=== PATIENT | female | born 1945 | race Caucasian/White ===

== ENCOUNTER 2019-04-09 04:40 | Inpatient (IN) | payer MEDICAID, MEDICARE, OTHER ==
[~2019-04-09] VITALS: Ht 172.7 cm; Wt 69.6 kg
[2019-04-09] VITALS (18 sets, daily range): BP systolic 89–154; BP diastolic 46–82
[~2019-04-09 04:40] MED LIST: CALC-881 PO; CALC0.5C8 PO; CALC500T52 PO; FESO4TAB PO; FLUT16SP16 BNOSTRILS; IBUP-1957 PO; MEMA1CAP PO; METH10TA2 PO; OMEP20TA20 PO; TRAM50TA2 PO
--- NOTE | 2019-04-09 04:47 | NUR ---
PT [id number] FROM BOARD AND CARE C/O HEMATOMA ON FOREHEAD S/P GLF. PER RA, PT WAS SITTING IN CHAIR, GOT UP TO TURN OFF THE LIGHT, AND FELL. NOTED ECCHYMOSIS AND SWELLING ON FOREHEAD. SKIN NOT INTACT, BLEEDING STOPPED. NOTED ABRASION ON L UPPER EXTREMITY WELL. DENIES NAUSEA, VOMITTING, DIZZINESS, HEADACHE. PT AAOX3. RESPIRATIONS EVEN AND UNLABORED. VITAL SIGNS STABLE. NO ACUTE DISTRESS NOTED AT THIS TIME.
--- NOTE | 2019-04-09 04:49 | NUR ---
EMT AT BEDSIDE FOR WOUND CARE
--- NOTE | 2019-04-09 05:19 | NUR ---
PT BROUGHT BY RADIOLOGY TO CT
--- NOTE | 2019-04-09 05:43 | NUR ---
IV INITATED RAC 20G. LABS DRAWN FROM SITE. MARBLE INSTALLER SUPERVISOR AT BEDSIDE FOR COLLECTION.
[2019-04-09 05:49] LABS: BASOPHILS # (AUTO) 0.1 /CMM (0.0-0.2); BASOPHILS % (AUTO) 1.2 % (0.0-2.0); EOSINOPHILS % (AUTO) 1.4 % (0.0-6.0); HEMATOCRIT 46 % (33-45); HEMOGLOBIN 15.2 g/dL (11.5-14.8); LYMPHOCYTES # (AUTO) 1.8 /CMM (0.8-4.8); LYMPHOCYTES % (AUTO) 17.3 % (20.0-44.0); MEAN CORPUSCULAR HGB CONC 33 g/dl (31.0-36.0); MEAN CORPUSCULAR VOLUME 87 fL (82-100); MONOCYTES % (AUTO) 9.4 % (2.0-12.0); NEUTROPHILS # (AUTO) 7.5 /CMM (1.8-8.9); NEUTROPHILS % (AUTO) 70.7 % (43.0-81.0); PLATELET COUNT (AUTO) 306 /CMM (150-450); RED BLOOD CELL COUNT(AUTO) 5.32 MIL/uL (4.0-5.2); WHITE BLOOD COUNT (AUTO) 10.6 K/uL (4.3-11.0)
--- NOTE | 2019-04-09 05:50 | NUR ---
NOTED TACHYCARDIA, MD AWARE
[2019-04-09] MEDS ORDERED: DILTIAZEM HCL 50 MG IV IV ONE (06:00)
[2019-04-09] MEDS ORDERED: DILTIAZEM HCL IV 125 MG in IV NS 0.9% 100 ML IV PRN (06:00)
[2019-04-09 06:02] LABS: CALCIUM, SERUM 8.6 mg/dL (8.5-10.1); CARBON DIOXIDE 24 mmol/L (21-32); CHLORIDE 100 mmol/L (98-107); CREATININE 1.6 mg/dL (0.6-1.3); GLUCOSE 100 mg/dL (74-106); POTASSIUM 5.6 mmol/L (3.5-5.1); SODIUM SERUM 133 mmol/L (136-145); UREA NITROGEN, BLOOD 31 mg/dL (7-18)
[2019-04-09] MEDS ORDERED: DILTIAZEM HCL 50 MG IV ONE (06:11)
[2019-04-09] MEDS ORDERED: DILTIAZEM HCL 25 MG IV ONE (06:25)
[2019-04-09] MEDS ORDERED: ACETAMINOPHEN 650 MG/SUPP.RECT RC PRN (06:30)
[2019-04-09] MEDS ORDERED: ONDANSETRON HCL/PF 4 MG/2 ML VIAL IVP PRN (06:30)
[2019-04-09] MEDS ORDERED: LABETALOL HCL IV 100MG VIAL IV PRN (06:30)
--- NOTE | 2019-04-09 07:52 | NUR ---
GOT BED ICU 261
--- NOTE | 2019-04-09 08:05 | NUR ---
ATTEMPTED TO GIVE REPORT, NURSE WILL CALL BACK
[2019-04-09] MEDS ORDERED: MEMA5TAB PO (08:36)
[2019-04-09] MEDS ORDERED: VENL75TA4 PO (08:36)
[2019-04-09] MEDS ORDERED: CEPH500C2 PO (08:36)
[2019-04-09] MEDS ORDERED: SIMV40TA5 PO (08:36)
[2019-04-09] MEDS ORDERED: SULF1TAB48 PO (08:36)
[2019-04-09] MEDS ORDERED: MULT-213 PO (08:36)
[2019-04-09] MEDS ORDERED: QUET25TA PO (08:36)
[2019-04-09] MEDS ORDERED: METO100T14 PO (08:36)
--- NOTE | 2019-04-09 08:37 | NUR ---
REPORT GIVEN TO LISANDRO OLIVA OF ICU
--- NOTE | 2019-04-09 08:39 | NUR ---
DR ALCARAZ AND DR DAHL AT BEDSIDE
[2019-04-09] MEDS ORDERED: PROT946L PO (08:51)
[2019-04-09] MEDS ORDERED: BISA10SU61 RC (08:52)
[2019-04-09] MEDS ORDERED: ASCO500C16 PO (08:52)
[2019-04-09] MEDS ORDERED: ZINC220C2 PO (08:52)
[2019-04-09] MEDS ORDERED: MAGN400O6 PO (08:52)
[2019-04-09] MEDS ORDERED: TYL2T PO (08:52)
[2019-04-09] MEDS ORDERED: FAMOTIDINE/PF INJ 20 MG/2 ML VIAL IV SCH (09:00)
[2019-04-09] MEDS: DILTIAZEM HCL IV 125 MG in IV NS 0.9% 100 ML IV PRN ×2 (09:24→22:14)
[2019-04-09] MEDS: DOCUSATE SODIUM 100 MG CAPSULE PO SCH ×2 (09:41→16:54)
[2019-04-09] MEDS: BLOOD SUGAR DIAGNOSTIC 1 EACH STRIP IN SCH ×4 (09:46→22:09)
[2019-04-09] MEDS: IV NS 0.9% 1,000 ML IV PRN ×2 (09:50→20:50)
[2019-04-09 09:57] LABS: MAGNESIUM 1.8 mg/dL (1.8-2.4); PHOSPHORUS 4.8 mg/dL (2.5-4.9)
[2019-04-09 10:07] LABS: THYROID STIMULATING HORMONE 3.278 uIU/mL (0.358-3.74)
--- NOTE | 2019-04-09 10:57 | NUR ---
MEDICAL REGISTRAR NOTE RCVD PT AWAKE AND ALERT TO SELF AND TIME, CONTROLLED AFIB ON MONITOR, TOLERATING O2 VIA NASAL CANNULA, CARRANZA INSERTED DUE TO URINARY RETENTION, RIGHT AC #20 C/D/I/PATENT, NO S/O INFILTRATION/PHLEBITIS OBSERVED CARDIZEM DRIP INFUSING TITRATED ORDERED. LEFT FOREHEAD HEMATOMA PRESENT. WILL CONTINUE TO MONITOR PT FOR SAFETY AND COMFORT, BED IN LOW AND LOCKED POSITION, CALL LIGHT WITHIN REACH, HEAD OF BED SLIGHTLY ELEVATED. URINE SENT FOR UA.
--- NOTE | 2019-04-09 11:07 | NUR ---
IRRIGATION TAX ASSESSOR COLLECTOR NOTE BASELINE NIHSS SCORE 4 DR. ALCARAZ INFORMED.
[2019-04-09] MEDS ORDERED: BLOOD SUGAR DIAGNOSTIC 1 EACH STRIP IN SCH (12:00)
[2019-04-09] MEDS ORDERED: ACETAMINOPHEN 325 MG TABLET PO PRN (12:30)
[2019-04-09 16:32] LABS: APPEARANCE,URINE CLEAR (CLEAR); BILIRUBIN,URINE NEGATIVE (NEGATIVE); BLOOD, URINE NEGATIVE Ery/uL (NEGATIVE); COLOR,URINE YELLOW (YELLOW); KETONES,URINE NEGATIVE (NEGATIVE); LEUKOCYTE ESTERASE ,URINE NEGATIVE (NEGATIVE); NITRITE, URINE NEGATIVE (NEGATIVE); PROTEIN,URINE NEGATIVE (NEGATIVE); UGLUCOSE NEGATIVE (NEGATIVE)
[2019-04-09 16:51] LABS: OSMOLALITY,URINE 625 mOS/kg (340-1090)
[2019-04-09 16:54] LABS: URINE SODIUM, RANDOM 117 mmol/l (40-220)
[2019-04-09 16:57] LABS: BACTERIA,URINE None seen /HPF (None Seen); RBC,URINE 0-2 /HPF (0-2); SQUAMOUS EPITHELIAL CELL,UR Few /HPF (None Seen); WBC,URINE 0-2 /HPF (0-3)
--- NOTE | 2019-04-09 17:52 | NUR ---
DISBURSING AGENT NOTE PT REMAINS THE SAME, AWAKE AND ALERT X2, AFIB/FLUTTER ON MONITOR WITH CONTROLLED RATE, TOLERATING O2 VIA NASAL CANNULA, CARRANZA TO GRAVITY DRAINING CLEAR, YELLOW URINE. TOLERATING REGULAR DIET WELL, RIGHT AC REMAINS C/D/I/PATENT, NO S/O INFILTRATION/PHLEBITIS OBSERVED, IVF INFUSING ORDERED. PT'S CARE WILL BE ENDORSED TO MASTER CONTROL SUPERVISOR RN FOR CONTINUITY OF CARE, BED IN LOW AND LOCKED POSITION. CALL LIGHT WITHIN REACH, HEAD OF BED ELEVATED.
--- NOTE | 2019-04-09 19:25 | NUR ---
ICU/LABORER CONCRETE PLANT RECEIVED REPORT FROM DAY NURSE. SEE FLOWSHEET FOR ASSESSMENT ALONG WITH ANY SKIN ISSUES THAT PT MAY HAVE ALONG WITH EACH INTERVENTIONS TO THESE. PT WAS ASSISTED WITH TURNING AND REPOSITIONING FOR COMFORT AND CARE. NO ACUTE DISTRESS SEEN AT THIS TIME, PT APPEARS TO BE RESTING COMFORTABLE. WILL CONTINUE TO MONITOR THIS PT.
[2019-04-09] MEDS: MORPHINE SULFATE INJ 2 MG/ML DISP.SYRIN IV PRN ×2 (20:07→22:13)
--- NOTE | 2019-04-09 20:10 | NUR ---
ICU/HEALTH INFORMATION TECHNOLOGIST PT COMPLAINED ABOUT PAIN TO THE LEFT SIDE OF THE HEAD FROM FALL AT NURSING FACILITY EARLIER. PAIN IS RATED AT 8/10 TO THIS AREA, NOTIFIED CHARGE NURSE WHO THEN HAVE MORPHINE 1 MG VIA IVP. CALL LIGHT WITHIN REACH. WILL CONTINUE TO MONITOR THIS PT AND HER PAIN LEVEL.
[2019-04-09] MEDS: SIMVASTATIN 10 MG TABLET PO SCH (22:10)
--- NOTE | 2019-04-09 22:31 | NUR ---
ICU/SUPERVISOR VACUUM METALIZING PT COMPLAINED THAT THE PAIN HASN'T GONE AWAY, NOW RATED 9/10. PAIN IS TO THE SAME AREA, LEFT SIDE OF THE HEAD . NOTIFIED THE CHARGE NURSE WHO THEN GAVE THE PT MORPHINE 1 MG IVP FOR THIS PAIN. CALL LIGHT WITHIN REACH. WILL CONTINUE TO MONITOR THIS PT'S PAIN LEVEL.
--- NOTE | 2019-04-09 22:34 | NUR ---
ICU/HALAL MEAT PACKER PT'S 2200 BLOOD SUGAR IS 94. THERE IS NO COVERAGE FOR THIS PER MD'S ORDERS. WILL CONTINUE TO MONITOR THIS PT'S SUGARS ORDERED BY MD AND HOSPITAL PROTOCOL. CALL LIGHT WITHIN REACH, NO ACUTE DISTRESS SEEN AT THIS TIME.
[2019-04-10] VITALS (27 sets, daily range): BP systolic 85–153; BP diastolic 38–96
--- NOTE | 2019-04-10 00:35 | NUR ---
ICU/NAPHTHALENE OPERATOR HELPER PT'S MIDNIGHT VITAL SIGNS ARE 153/56 WITH HEART RATE AT 103, NOTIFIED CHARGE NURSE WHO THEN LOWERED DOWN THE CARDIZEM DRIP FROM 10MG TO 8. WILL CONTINUE TO MONITOR THIS PT AND HER VITAL SIGNS.
--- NOTE | 2019-04-10 02:12 | NUR ---
ICU/CHILD PSYCHOMETRIST PT'S 020 VITAL SIGNS ARE 125/66 WITH A HEART RATE OF 104, NOTIFIED CHARGE NURSE WHO THEN LOWERED DOWN THE CARDIZEM DRIP FROM 8 TO 6. WILL CONTINUE TO MONITOR THIS PT AND HER VITAL SIGNS. CALL LIGHT WITHIN REACH. NO ACUTE DISTRESS SEEN AT THIS TIME.
--- NOTE | 2019-04-10 04:12 | NUR ---
ICU/POLE LIFT OPERATOR PT'S 399 VITAL SIGNS ARE STABLE AT 123/68 WITH HEART RATE AT 110, NOTIFIED CHARGE NURSE WHO THEN LOWERED DOWN THE CARDIZEM DRIP FROM 6MG TO 4. WILL CONTINUE TO MONITOR THIS PT AND HER VITAL SIGNS.
[2019-04-10 05:02] LABS: BASOPHILS # (AUTO) 0.1 /CMM (0.0-0.2); BASOPHILS % (AUTO) 1.4 % (0.0-2.0); EOSINOPHILS % (AUTO) 0.9 % (0.0-6.0); HEMATOCRIT 43 % (33-45); HEMOGLOBIN 14.1 g/dL (11.5-14.8); LYMPHOCYTES # (AUTO) 1.4 /CMM (0.8-4.8); LYMPHOCYTES % (AUTO) 16.1 % (20.0-44.0); MEAN CORPUSCULAR HGB CONC 33 g/dl (31.0-36.0); MEAN CORPUSCULAR VOLUME 87 fL (82-100); MONOCYTES # (AUTO) 0.8 /CMM (0.1-1.30); MONOCYTES % (AUTO) 9.1 % (2.0-12.0); NEUTROPHILS # (AUTO) 6.5 /CMM (1.8-8.9); NEUTROPHILS % (AUTO) 72.5 % (43.0-81.0); PLATELET COUNT (AUTO) 271 /CMM (150-450); RED BLOOD CELL COUNT(AUTO) 4.91 MIL/uL (4.0-5.2); WHITE BLOOD COUNT (AUTO) 8.9 K/uL (4.3-11.0)
[2019-04-10 05:26] LABS: ALANINE AMINOTRANSFERASE 75 U/L (12-78); ALBUMIN 2.9 g/dL (3.4-5.0); ALKALINE PHOSPHATASE 78 U/L (46-116); ASPARTATE AMINOTRANSFERASE 112 U/L (15-37); BILIRUBIN,TOTAL 0.8 mg/dL (0.2-1.0); CALCIUM, SERUM 8.3 mg/dL (8.5-10.1); CARBON DIOXIDE 27 mmol/L (21-32); CHLORIDE 102 mmol/L (98-107); CREATININE 1.1 mg/dL (0.6-1.3); GLUCOSE 102 mg/dL (74-106); MAGNESIUM 1.5 mg/dL (1.8-2.4); POTASSIUM 4.4 mmol/L (3.5-5.1); SODIUM SERUM 136 mmol/L (136-145); TOTAL PROTEIN, SERUM 6.6 g/dL (6.4-8.2); UREA NITROGEN, BLOOD 19 mg/dL (7-18)
[2019-04-10 05:29] LABS: CHOLESTEROL 121 mg/dL (<200); CREATINE KINASE, TOTAL 59 U/L (26-192); HDL CHOLESTEROL 63 mg/dL (40-60); LDL 53 mg/dL (0-99); THYROID STIMULATING HORMONE 2.623 uIU/mL (0.358-3.74); TRIGLYCERIDES 51 mg/dL (30-150)
[2019-04-10] MEDS: IV NS 0.9% 1,000 ML IV PRN ×2 (06:04→17:16)
[2019-04-10] MEDS: BLOOD SUGAR DIAGNOSTIC 1 EACH STRIP IN SCH ×4 (07:39→21:55)
--- NOTE | 2019-04-10 07:49 | NUR ---
INITIAL PROFESSOR OF EXERCISE SCIENCE NOTE PT RESTING IN BED, AFIB ON MONITOR, TOLERATING O2 VIA NASAL CANNULA, CARRANZA TO GRAVITY DRAINING CLEAR, YELLOW URINE, HEMATOMA OVER LEFT FOREHEAD, IV SITES C/D/I/PATENT, NO S/O INFILTRATION/PHLEBITIS OBSERVED, IVF INFUSING ORDERED, CARDIZEM DRIP INFUSING TITRATED ACCORDINGLY. WILL CONTINUE TO MONITOR PT FOR SAFETY AND COMFORT. BED IN LOW AND LOCKED POSITION, CALL LIGHT WITHIN REACH.
[2019-04-10] MEDS: Magnesium 1GM/D5W 100ML PREMIX 100 ML IV SCH ×2 (08:51→09:50)
[2019-04-10] MEDS: DOCUSATE SODIUM 100 MG CAPSULE PO SCH ×2 (08:51→17:12)
[2019-04-10] MEDS: PANTOPRAZOLE 40 MG TABLET.DR PO SCH (08:51)
--- NOTE | 2019-04-10 10:35 | NUR ---
WOUND CARE CONSULT: PT PRESENTS WITH FLAT DRY ABRASION TO LEFT FOREHEAD AND SKIN TEAR TO LEFT ARM, SOME BRUISING, PRESENT ON ADMISSION. RECOMMENDATIONS MADE FOR SKIN PROTECTION AND WOUND CARE. DISCUSSED WITH NURSING STAFF. PT IS INDEPENDENT WITH BED MOBILITY AND CONTINENT AT THIS TIME WITH TERE CATH. PT IS DROWSY. WILL SEE PRN. YI IN AGREEMENT WITH PLAN OF CARE. CURRENT CLARK SCORE IS 18. Addendum: 04/10/19 at 1036 by MICKEY SNELL WNDNU Amended: Links added.
[2019-04-10] MEDS ORDERED: Z GUARD REMEDY 2 OZ OINT TP PRN (11:00)
--- NOTE | 2019-04-10 11:11 | NUR ---
Social service consult requested by MD Crowley for Advance Directive and information resources for eviction. Pt is a 74-year-old female brought from her board and care after a fall. tar pot worker attempted to meet with pt at bedside, sw attempted to prompt pt however pt was not alert. Social work will attempt to see pt at a later time.
--- NOTE | 2019-04-10 11:14 | NUR ---
KNOT PICKER CLOTH NOTE DR. MORELOS AT BEDSIDE UPDATED ON PT'S CONDITION, PT REMAINS SLEEPY BUT AROUSABLE AND FOLLOWING SIMPLE COMMANDS SUCH SQUEEZING WITH BILATERAL HANDS. MD WAS INFORMED THAT PT DIDN'T GO TO SLEEP UNTIL ~0200 PER REPORT AND COMPLAINED OF ABDOMINAL PAIN OVERNIGHT SHE WAS GIVEN MORPHINE FOR THAT. RN REQUESTED MORPHINE TO BE DC'd SINCE PT APPEARS OVERLY SEDATED AND ANOTHER PAIN MANAGEMENT OPTION BE RECOMMENDED SINCE PT REFUSED TO HAVE TYLENOL YESTERDAY.
[2019-04-10] MEDS: METOPROLOL TARTRATE 50 MG TABLET PO SCH ×3 (12:00→23:23)
[2019-04-10] MEDS ORDERED: HALOPERIDOL LACTATE INJ 5 MG/ML VIAL IM ONE (12:00)
--- NOTE | 2019-04-10 12:17 | NUR ---
ROAD ROLLER OPERATOR HOT MIX NOTE PT AWAKE, DELUSIONAL DESPITE ATTEMPTING TO RE-ORIENT HER. DR. MORELOS IN UNIT INFORMED, RECOMMENDED HALDOL X1 WHICH WAS GIVEN IM. DUE AGITATION PT'S HR ELEVATED IN 140's. UNABLE TO GIVE METOPROLOL DUE TO DECREASED SBP. WILL CONTINUE TO MONITOR PT.
[2019-04-10] MEDS ORDERED: DIGOXIN INJ 0.5 MG/2 ML AMPUL IV ONE (14:10)
--- NOTE | 2019-04-10 17:58 | NUR ---
JAVA MOBILE DEVELOPER NOTE PT FINALLY WOKE UP NIHSS SCORE 12 (BASELINE 4 YESTERDAY) DR. MORELOS INFORMED, MD WILL REVIEW CT SCAN HEAD DONE EARLIER. PT APPEARS CALM, EASILY RE-ORIENTED, REMAINS AFIB ON MONITOR. PT'S HR IN THE 140-150's UNCONTROLLED AFIB WHILE PT RESTING DESPITE GIVING DIGOXIN EARLIER. DR. MORELOS INFORMED AND RECOMMENDED AMIODARONE DRIP. PT APPEARS IN NO DISTRESS. CARRANZA TO GRAVITY DRAINING PALE, YELLOW URINE. IV SITES REMAIN C/D/I/PATENT, NO S/O INFILTRATION/PHLEBITIS OBSERVED, IVF INFUSING ORDERED. PT AWAKE AND HAVING DINNER AT THIS TIME TOLERATING DIET. PT'S CARE WILL BE ENDORSED TO STUDENT OFFICER RN FOR CONTINUITY OF CARE, BED IN LOW AND LOCKED POSITION, CALL LIGHT WITHIN REACH. HEAD OF BED ELEVATED.
[2019-04-10] MEDS ORDERED: AMIODARONE 150 MG in IV D5W 100 ML IV ONE (18:00)
[2019-04-10] MEDS ORDERED: AMIODARONE 900 MG in IV D5W 482 ML IV PRN (18:00)
[2019-04-10] MEDS ORDERED: BISACODYL SUPP (10 MG) 10 MG/SUPP.RECT SUPP.RECT RC PRN (19:00)
--- NOTE | 2019-04-10 19:07 | NUR ---
FEED PROJECT ENGINEER NOTE DR. MORELOS CAME TO ASSESS PT. NO NEW ORDERS RCVD. PT REQUESTED SUPPOSITORY AND DR. MORELOS AGREED, THIS WAS GIVEN ORDERED.
--- NOTE | 2019-04-10 19:45 | NUR ---
ICU/HAND FRETTED INSTRUMENT MAKER RECEIVED REPORT FROM DAY NURSE. SEE FLOWSHEET FOR ASSESSMENT ALONG WITH SKIN ISSUES THAT PT HAS ALONG WITH EACH INTERVENTIONS TO THESE. PT WAS ASSISTED WITH TURNING AND REPOSITIONING FOR COMFORT AND CARE. NO ACUTE DISTRESS SEEN AT THIS TIME, PT APPEARS TO BE RESTING COMFORTABLE. WILL CONTINUE TO MONITOR THIS PT. CALL LIGHT WITHIN REACH.
--- NOTE | 2019-04-10 21:30 | NUR ---
ICU/OTR HAZMAT COMPANY DRIVER PT'S BLOOD SUGAR IS 197, THERE IS NO COVERAGE FOR THIS HOWEVER THERE IS AN ORDER FOR ALEXANDER DACOSTA TO CALL IF BS IS OVER 150'S. PT JUST HAD 2 PUDDINGS ALONG WITH A JUICE BOX FROM EARLIER. CALL WAS PLACED TO ON MAGGI JACKIE ELIZALDE WHO WAS NOTIFIED OF ELEVATED BLOOD SUGAR AND THAT THROUGH THE PAST FEW DAYS SUGARS HAVE BEEN IN THE 120'S. SHE SAID THAT THERE IS NO REASON TO CLOSELY MONITOR THE SUGARS IF AT HOME PT IS NOT ON INSULIN. AND TO D/C THE ACCU CHECKS. ONLY MONITOR THESES ON AM LABS. ALL ORDERS WERE CARRIED OUT.
[2019-04-10] MEDS: SIMVASTATIN 10 MG TABLET PO SCH (21:55)
--- NOTE | 2019-04-10 23:20 | NUR ---
ICU/STUDENT ASSISTANT PT REQUESTED SOMETHING FOR PAIN, ULTRUM 50 MG PO WAS GIVEN FOR THIS. PAIN IS RATED 8/10 TO LEFT SIDE OF HEAD. CALL LIGHT WITHIN REACH. WILL CONTINUE TO MONITOR THIS PT AND HER PAIN.
[2019-04-10] MEDS: TRAMADOL HCL 50 MG TABLET PO PRN (23:24)
[2019-04-11] VITALS (20 sets, daily range): BP systolic 93–150; BP diastolic 54–97
--- NOTE | 2019-04-11 00:40 | NUR ---
ICU/WOOD MILL SUPERVISOR PT'S MIDNIGHT LOPRESSOR WAS HELD DUE TO LOW BLOOD PRESSURE OF 102/66. PT HAD JUST GOTTEN A PAIN PILL EARLIER WHICH WOULD CONTRIBUTE TO THE LOW BP. CALL LIGHT WITHIN REACH, NOM ACUTE DISTRESS SEEN AT THIS TIME.
--- NOTE | 2019-04-11 02:00 | NUR ---
ICU/HANDBAG DESIGNER PT THROUGHOUT THE SHIFT HAS BEEN AGGRESSIVE, WITH PERIODS OF YELLING OUT AT TIMES, EVEN CURSING WITH NOBODY PRESENT IN ROOM. PT REQUEST SIMPLE THINGS SUCH WATER WHEN NEXT TO HER, ENCOURAGE INDEPENDENCE WITH ADL'S HOWEVER PT IS REFUSING. WILL CONTINUE TO MONITOR THIS PT AND HER UNUSUAL BEHAVIOR. CALL LIGHT WITHIN REACH.
[2019-04-11] MEDS: IV NS 0.9% 1,000 ML IV PRN ×2 (02:52→14:09)
--- NOTE | 2019-04-11 04:00 | NUR ---
ICU/AGENCY DIRECTOR AM LABS WERE DONE, ALONG WITH A EKG. AWAIT FOR ANY ABNORMAL RESULTS.
[2019-04-11 04:38] LABS: BASOPHILS # (AUTO) 0.1 /CMM (0.0-0.2); BASOPHILS % (AUTO) 0.6 % (0.0-2.0); EOSINOPHILS % (AUTO) 0.8 % (0.0-6.0); HEMATOCRIT 39 % (33-45); HEMOGLOBIN 13.1 g/dL (11.5-14.8); LYMPHOCYTES # (AUTO) 1.4 /CMM (0.8-4.8); LYMPHOCYTES % (AUTO) 14.7 % (20.0-44.0); MEAN CORPUSCULAR HGB CONC 33 g/dl (31.0-36.0); MEAN CORPUSCULAR VOLUME 87 fL (82-100); MONOCYTES % (AUTO) 9.7 % (2.0-12.0); NEUTROPHILS # (AUTO) 7.3 /CMM (1.8-8.9); NEUTROPHILS % (AUTO) 74.2 % (43.0-81.0); PLATELET COUNT (AUTO) 247 /CMM (150-450); RED BLOOD CELL COUNT(AUTO) 4.54 MIL/uL (4.0-5.2); WHITE BLOOD COUNT (AUTO) 9.8 K/uL (4.3-11.0)
[2019-04-11 04:50] LABS: CALCIUM, SERUM 8.4 mg/dL (8.5-10.1); CARBON DIOXIDE 23 mmol/L (21-32); CHLORIDE 105 mmol/L (98-107); CREATININE 0.7 mg/dL (0.6-1.3); GLUCOSE 91 mg/dL (74-106); MAGNESIUM 1.7 mg/dL (1.8-2.4); PHOSPHORUS 3.3 mg/dL (2.5-4.9); POTASSIUM 4.3 mmol/L (3.5-5.1); SODIUM SERUM 137 mmol/L (136-145); UREA NITROGEN, BLOOD 14 mg/dL (7-18)
[2019-04-11] MEDS: METOPROLOL TARTRATE 50 MG TABLET PO SCH ×3 (05:40→17:21)
--- NOTE | 2019-04-11 05:58 | NUR ---
ICU/KILN PUSHER PT'S 0600 LOPRESSOR WAS HELD DUE TO LOW BLOOD PRESSURE OF 100/56. CALL LIGHT WITHIN REACH, NO ACUTE DISTRESS SEEN AT THIS TIME. WILL CONTINUE TO MONITOR THIS PT'S BLOOD PRESSURE CLOSELY.
--- NOTE | 2019-04-11 07:30 | NUR ---
INITIAL PT APPEARS CALM, EASILY RE-ORIENTED, REMAINS AFIB ON MONITOR. PT'S HR IN THE 130's 103 UNCONTROLLED AFIB WHILE PT RESTING DESPITE GIVING DIGOXIN EARLIER. DR. MORELOS IS AWARE. PT APPEARS IN NO DISTRESS. CARRANZA TO GRAVITY DRAINING PALE, YELLOW URINE. IV SITES REMAIN C/D/I/PATENT, NO S/O INFILTRATION/PHLEBITIS OBSERVED, IVF INFUSING ORDERED. PT AWAKE AND HAVING DINNER AT THIS TIME TOLERATING DIET. PT'S CARE WILL BE ENDORSED TO CRTTS RN FOR CONTINUITY OF CARE, BED IN LOW AND LOCKED POSITION, CALL LIGHT WITHIN REACH. HEAD OF BED ELEVATED.
[2019-04-11 08:08] LABS: *SPE A/G RATIO 1.1 (0.7-1.7); *SPE ALBUMIN 3.3 g/dL (2.9-4.4); *SPE ALPHA-1-GLOBULIN 0.2 g/dL (0.0-0.4); *SPE ALPHA-2-GLOBULIN 0.7 g/dL (0.4-1.0); *SPE BETA GLOBULIN 0.8 g/dL (0.7-1.3); *SPE M-SPIKE Not Observed g/dL (Not Observed); *SPEGAMMA GLOBULIN 1.2 g/dL (0.4-1.8)
[2019-04-11] MEDS: PANTOPRAZOLE 40 MG TABLET.DR PO SCH (09:06)
[2019-04-11] MEDS: Magnesium 1GM/D5W 100ML PREMIX 100 ML IV SCH ×2 (09:06→10:22)
[2019-04-11] MEDS: DOCUSATE SODIUM 100 MG CAPSULE PO SCH ×2 (09:06→16:56)
[2019-04-11] MEDS: DIGOXIN 0.25 MG TABLET PO SCH (09:13)
[2019-04-11 14:11] LABS: PTH, INTACT 61 pg/mL (15-65)
--- NOTE | 2019-04-11 14:35 | NUR ---
AROUND 1410 PT UP AND WALKING AROUND UNIT WITH PT AND WALKER RETURNED TO BED
--- NOTE | 2019-04-11 14:59 | NUR ---
Social service consult requested by Dr. Boo for placement. Pt. is a 74 year old female who was admitted to [facility] ICU for subarachnoid hemorrhage. Per case investigator Imelda pt. is from [facility] and will be discharged back to the facility once medically cleared. Pt. 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 Pt. has a history of psychiatric hospitalizations. No other social service needs are requested at this time.
--- NOTE | 2019-04-11 15:50 | NUR ---
RN NOTES PATIENT TRANSFEREE FROM ICU 74 Y/OLD FEMALE ON TELE . REPORT GET BEDSIDE RN NAME KI. TELE MONITOR ON ST-111. PATIENT HAS NO ACUTE RESPIRATORY DISTRESS, NO SOB. WAS COMPLAINING OF PAIN GENERALIZED 05/02. V/S TAKEN BP 104/64, P-84, R-20, 02-98 ROOM AIR, T-98.2. PATIENT HAS A CARRANZA CATHETER DRAINING YELLOW OUTPUT. PATIENT UNSTABLE GAIT. BRUISES RIGHT ARM, BRUISE LEFT ARM WITH SCABS DRESSING INTACT, AND LEFT SIDE OF FOREHEAD WOUND OPEN TO AIR, AND BRUISES LEFT FACE. INFUSING NS AT 100 ML/HR ON RIGHT HAND INTACT. NEEDS ATTENDED AND ANTICIPATED, CALL LIGHT WITHIN TO REACH, SAFETY PRECAUTION MAINTAINED ALL THE TIME. BED ALARM ON.
[2019-04-11] MEDS: TRAMADOL HCL 50 MG TABLET PO PRN (17:07)
--- NOTE | 2019-04-11 17:07 | NUR ---
RN NOTES ADMINISTERED ULTRAM 50 MG PO PRN FOR GENERALIZED PAIN 04/02, AND SCHEDULED MEDICATION. PATIENT STABLE, INFUSING AT 100 ML/HR ON RIGHT HAND INTACT, CALL LIGHT WITHIN TO REACH, SAFETY PRECAUTION MAINTAINED ALL THE TIME.
--- NOTE | 2019-04-11 18:30 | NUR ---
RN NOTES PATIENT STABLE, MEDICATION WERE ADMINISTERED FOR PAIN EFFECTIVE. PATIENT EATING DINNER BY SELF. ALSO ADMINISTERED SCHEDULED MEDICATION. V/S STABLE. PATIENT TURN AND REPOSTION SELF IN THE BED. CALL LIGHT WITHIN TO REACH. F/C DRAIN YELLOW OUTPUT. ENDORSED ONCOMING NURSE FOLLOW PLAN OF CARE.
--- NOTE | 2019-04-11 20:12 | NUR ---
Recieved alert and orientated speech clear hand sugar refinery supervisor strong and equal. good eye contact verbalizes her need revieved the call light with the patient
[2019-04-11] MEDS: SIMVASTATIN 10 MG TABLET PO SCH (21:27)
[2019-04-12] VITALS: BP_SYST 117; BP_SYST 99; BP_DIAS 63; BP_DIAS 70
[2019-04-12] MEDS: IV NS 0.9% 1,000 ML IV PRN (03:07)
[2019-04-12 04:00] VITALS: BP 108/69
[2019-04-12 04:04] VITALS: BP 108/69
--- NOTE | 2019-04-12 04:58 | NUR ---
ENDING NOTES: remains alert and orientated speech clear moving all extremities. enjoys conversation, talking about her cats and where she will go when leaving the hospital. yobani checks within normal/. bruising noted head and her arms
[2019-04-12] MEDS: METOPROLOL TARTRATE 50 MG TABLET PO SCH ×4 (06:02→17:50)
--- NOTE | 2019-04-12 07:05 | NUR ---
RN NOTES PATIENT IN BED ALERT ORIENTED X 3. NO ACUTE DISTRESS NOTED. BREATHING UNLABORED. NO SOB NOTED. IV ACCESS PATENT AND INTACT, NO REDNESS OR SWELLING NOTED. SAFETY MEASURES IN PLACE. CALL LIGHT WITHIN REACH. WILL CONTINUE TO MONITOR ACCORDINGLY.
[2019-04-12 08:00] VITALS: BP 123/72
[2019-04-12 08:11] LABS: BASOPHILS # (AUTO) 0.1 /CMM (0.0-0.2); BASOPHILS % (AUTO) 1.1 % (0.0-2.0); EOSINOPHILS % (AUTO) 2.9 % (0.0-6.0); HEMATOCRIT 38 % (33-45); HEMOGLOBIN 12.4 g/dL (11.5-14.8); LYMPHOCYTES # (AUTO) 1.5 /CMM (0.8-4.8); LYMPHOCYTES % (AUTO) 18.3 % (20.0-44.0); MEAN CORPUSCULAR HGB CONC 33 g/dl (31.0-36.0); MEAN CORPUSCULAR VOLUME 87 fL (82-100); MONOCYTES # (AUTO) 0.8 /CMM (0.1-1.30); MONOCYTES % (AUTO) 9.3 % (2.0-12.0); NEUTROPHILS # (AUTO) 5.7 /CMM (1.8-8.9); NEUTROPHILS % (AUTO) 68.4 % (43.0-81.0); PLATELET COUNT (AUTO) 241 /CMM (150-450); RED BLOOD CELL COUNT(AUTO) 4.33 MIL/uL (4.0-5.2); WHITE BLOOD COUNT (AUTO) 8.3 K/uL (4.3-11.0)
[2019-04-12 08:28] LABS: ALANINE AMINOTRANSFERASE 40 U/L (12-78); ALBUMIN 2.1 g/dL (3.4-5.0); ALKALINE PHOSPHATASE 69 U/L (46-116); ASPARTATE AMINOTRANSFERASE 32 U/L (15-37); BILIRUBIN,TOTAL 0.7 mg/dL (0.2-1.0); CALCIUM, SERUM 7.8 mg/dL (8.5-10.1); CARBON DIOXIDE 21 mmol/L (21-32); CHLORIDE 105 mmol/L (98-107); CREATININE 0.7 mg/dL (0.6-1.3); GLUCOSE 88 mg/dL (74-106); MAGNESIUM 1.6 mg/dL (1.8-2.4); PHOSPHORUS 3.5 mg/dL (2.5-4.9); SODIUM SERUM 137 mmol/L (136-145); TOTAL PROTEIN, SERUM 5.7 g/dL (6.4-8.2); UREA NITROGEN, BLOOD 15 mg/dL (7-18)
[2019-04-12] MEDS: PANTOPRAZOLE 40 MG TABLET.DR PO SCH (09:15)
[2019-04-12] MEDS: DOCUSATE SODIUM 100 MG CAPSULE PO SCH ×2 (09:15→17:48)
[2019-04-12] MEDS: Magnesium 1GM/D5W 100ML PREMIX 100 ML IV SCH ×2 (09:52→11:00)
--- NOTE | 2019-04-12 11:50 | NUR ---
MS RN NOTES NOTIFIED DR MCFARLANE REGARDING HOME MEDICATION RECONCILIATION NEEDS DONE.
[2019-04-12] MEDS ORDERED: METO50TA16 PO (12:03)
[2019-04-12] MEDS ORDERED: Digoxin PO (12:03)
[2019-04-12] MEDS: DIGOXIN 0.25 MG TABLET PO SCH (12:20)
--- NOTE | 2019-04-12 15:05 | NUR ---
MS RN NOTES RECEIVED NEW ORDERS FROM DR MCFARLANE TO REMOVED CARRANZA CATHETER. CARRANZA CATHETER REMOVED, PATIENT TOLERATED WELL. WILL CONTINUE TO MONITOR FOR URINARY RETENTION.
[2019-04-12 16:00] VITALS: BP 119/66
[2019-04-12 17:50] VITALS: BP 122/68
--- NOTE | 2019-04-12 18:30 | NUR ---
MS RN NOTES SEEN ND EVALUATED BY DR FELICIANO SKELTON NEUROLOGIST CLEARED PATIENT FOR DISCHARGE.
--- NOTE | 2019-04-12 18:45 | NUR ---
MS RN NOTES PATIENT VOIDED X 3 TIMES, NO URINARY RETENTION NOTED.
--- NOTE | 2019-04-12 19:00 | NUR ---
RN NOTES PATIENT IN BED ALERT ORIENTED X 3. NO ACUTE DISTRESS NOTED. BREATHING UNLABORED. NO SOB NOTED.DUE MEDICATIONS GIVEN, NO ASE NOTED. NEEDS ATTENDED AND ANTICIPATED. KEPT CLEAN DRY AND COMFORTABLE. SAFETY MEASURES IN PLACE. CALL LIGHT WITHIN REACH. PATIENT FOR DISCHARGE TO [facility], [facility] GAS PUMPING STATION SUPERVISOR RE[facility] ARRANGING TRANSPORTATION FOR CLUB MANAGER. ENDORSED TO NIGHT NURSE FOR CONTINUITY OF CARE AND DISCHARGE.
--- NOTE | 2019-04-12 19:10 | NUR ---
RN PM OPENING NOTES BEDSIDE REPORT RECIEVED FROM VANDANA POC REVIEWED WITH PATIENT QUESTIONS CONCERNS ADDRESSED. PATIENT IN BED ALERT ORIENTED X 3. NO ACUTE DISTRESS NOTED. BREATHING UNLABORED. NO SOB NOTED. SAFETY MEASURES IN PLACE. CALL LIGHT WITHIN REACH. PATIENT FOR DISCHARGE TO [facility], [facility] HYDROELECTRIC PRODUCTION TECHNICIAN [facility]ANG[facility] TRANSPORTATION FOR REGISTERED MEDICAL ASSISTANT.
--- NOTE | 2019-04-12 21:10 | NUR ---
DISCHARGE INSTRUCTIONS. PATIENT PICKUP TIME IS AT 2130. REVIEWED DISCHARGE PAPERWORK WITH PATIENT. QUESTIONS CONCERNS ADDRESSED. VERBALIZED UNDERSTANDING TO FOLLOW UP WITH CARDIOLOGY AND NEUROLOGIST. PATIENT REQUESTING INFLU VACCINE AND WAS INFORMED THAT THE HOSPITAL DOES NOT OFFER IT AT THIS TIME IT IS NOT THE SEASON. PATIENT VERBALZIED UNDERSTANDING. PATIENT ALSO REQUESTING PAIN MEDICATIONS NORCO AND OXYCODONE BE PRESCRIBED. PATIENT INFORMED THAT THERE IS NO WRITTEN PRESCRIPTION FOR THOSE MEDICATIONS AND THAT SHE WOULD HAVE TO FOLLOW UP WITH PRIMARY MEDICAL DOCTOR. IV REMVOED FROM LEFT FOREARM GAUGE 22 WITH NO S/S OF COMPLICATIONS.
[2019-04-12] MEDS: TRAMADOL HCL 50 MG TABLET PO PRN (21:17)
[2019-04-12] MEDS: SIMVASTATIN 10 MG TABLET PO SCH (21:17)
--- NOTE | 2019-04-12 21:17 | NUR ---
TRAMADOL PATIENT C/O PAIN OF 4/10 GENERALIZED REQUESTING TRAMADOL. TRAMADOL ADMINISTERED ORDERED.
--- NOTE | 2019-04-12 22:10 | NUR ---
AMBULANCE POLYSOMNOGRAPHY TECHNICIAN [facility] HERE TO POLYSOMNOGRAPHY TECHNICIAN THE PATIENT UNIT 716. BROCK EMT/TECH GIVEN REPORT. QUESTIONS CONCERNS ADDRESSED. PATIENT SENT WITH ALL HER BELONGINGS. PAPERWORK SENT WITH PATIENT TO [facility] , ASSISTED LIVING FACILITY. PATIENT IN NO DISTRESS ON ROOM AIR. STATES TRAMADOL IS HELPING PAIN RATES IT NOW 2 OF 10.
== END 2019-04-12 22:10 | DRG 85 ==
LOC: ER 04:43 → ICU 07:54 → MED 04-11 16:03 → TELE 04-11 16:18 → MED 04-12 10:48
PROVIDERS: ADMIT Internal Medicine; ATTEND Student in an Organized Health Care Education/Training Program
DX: S06.6X0A Traumatic subarachnoid hemorrhage without loss of consciousness, initial encounter (principal); G93.41 Metabolic encephalopathy; N17.0 Acute kidney failure with tubular necrosis; E87.1 Hypo-osmolality and hyponatremia; D68.69 Other thrombophilia; W18.30XA Fall on same level, unspecified, initial encounter; Y92.89 Other specified places as the place of occurrence of the external cause; I48.91 Unspecified atrial fibrillation; E83.42 Hypomagnesemia; E87.5 Hyperkalemia; I10 Essential (primary) hypertension; K21.9 Gastro-esophageal reflux disease without esophagitis; R29.6 Repeated falls; Z86.19 Personal history of other infectious and parasitic diseases; S00.83XA Contusion of other part of head, initial encounter; Z79.891 Long term (current) use of opiate analgesic; E86.9 Volume depletion, unspecified; E11.42 Type 2 diabetes mellitus with diabetic polyneuropathy; J44.9 Chronic obstructive pulmonary disease, unspecified
CPT/HCPCS: 36415; 70450-TC; 71045-TC; 80048-TC; 80053-TC; 80061-TC; 81000-TC; 82550-TC; 82962-TC; 83735-TC; 83935-TC; 83970; 84100-TC; 84155; 84165; 84300-TC; 84439-TC; 84443-TC; 84484-TC; 85025-TC; 87081-TC; 92526; 92611-TC; 93307-TC; 94799-TC; 97110-TC; 97112-TC; 97116-TC; 97530-TC; 97535-TC; A6403; G0378; J0282; J1160; J1630; J2270; J3475; J3490; J7030; J7060

== ENCOUNTER 2019-05-02 14:28 | Emergency (ER) | payer OTHER ==
[~2019-05-02] VITALS: Ht 172.7 cm; Wt 72.6 kg
[~2019-05-02 14:28] MED LIST changes: +ASCO500C16 PO; +BISA10SU61 RC; -CALC-881 PO; -CALC0.5C8 PO; -CALC500T52 PO; +CEPH500C2 PO; +Digoxin PO; -FESO4TAB PO; -FLUT16SP16 BNOSTRILS; -IBUP-1957 PO; +MAGN400O6 PO; -MEMA1CAP PO; +MEMA5TAB PO; -METH10TA2 PO; +METO100T14 PO; +METO50TA16 PO; +MULT-213 PO; -OMEP20TA20 PO; +PROT946L PO; +QUET25TA PO; +SIMV40TA5 PO; +SULF1TAB48 PO; -TRAM50TA2 PO; +TYL2T PO; +VENL75TA4 PO; +ZINC220C2 PO
--- NOTE | 2019-05-02 14:32 | NUR ---
DR MOISE AT BEDSIDE
--- NOTE | 2019-05-02 14:32 | NUR ---
[id number] FOR L SIDED CHEST PAIN R/T LUE. ASA AND NITRO X1 GIVEN MANAGER STAFFING. TO ER BED 1, HOOKED TO MONITOR, CHANGED TO GOWN, PROVIDED W WARM BLANKET, PT AOX2 , NOT IN DISTRESS. PT DENIES CHEST PAIN UPON ARRIVAL IN ED. AWAITING MD LEONARD
[2019-05-02 14:47] LABS: BASOPHILS # (AUTO) 0.1 /CMM (0.0-0.2); BASOPHILS % (AUTO) 2.2 % (0.0-2.0); EOSINOPHILS % (AUTO) 2.6 % (0.0-6.0); HEMATOCRIT 37 % (33-45); LYMPHOCYTES # (AUTO) 1.4 /CMM (0.8-4.8); LYMPHOCYTES % (AUTO) 26.5 % (20.0-44.0); MEAN CORPUSCULAR HGB CONC 33 g/dl (31.0-36.0); MEAN CORPUSCULAR VOLUME 90 fL (82-100); MONOCYTES # (AUTO) 0.4 /CMM (0.1-1.30); MONOCYTES % (AUTO) 8.3 % (2.0-12.0); NEUTROPHILS # (AUTO) 3.2 /CMM (1.8-8.9); NEUTROPHILS % (AUTO) 60.4 % (43.0-81.0); PLATELET COUNT (AUTO) 250 /CMM (150-450); RED BLOOD CELL COUNT(AUTO) 4.05 MIL/uL (4.0-5.2); WHITE BLOOD COUNT (AUTO) 5.3 K/uL (4.3-11.0)
[2019-05-02 15:03] LABS: CALCIUM, SERUM 7.8 mg/dL (8.5-10.1); CARBON DIOXIDE 26 mmol/L (21-32); CHLORIDE 107 mmol/L (98-107); GLUCOSE 231 mg/dL (74-106); SODIUM SERUM 139 mmol/L (136-145); UREA NITROGEN, BLOOD 23 mg/dL (7-18)
[2019-05-02 15:08] LABS: ALANINE AMINOTRANSFERASE 57 U/L (12-78); ALBUMIN 2.5 g/dL (3.4-5.0); ALKALINE PHOSPHATASE 75 U/L (46-116); ASPARTATE AMINOTRANSFERASE 34 U/L (15-37); B-TYPE NATRIURETIC PEPTIDE 3252 PG/ML (0-125); BILIRUBIN,DIRECT 0.1 mg/dL (0.0-0.2); BILIRUBIN,TOTAL 0.3 mg/dL (0.2-1.0); TOTAL PROTEIN, SERUM 5.9 g/dL (6.4-8.2)
--- NOTE | 2019-05-02 15:19 | NUR ---
CALLED FOR BED, TURNED IN MOVE SHEET.
[2019-05-02] MEDS ORDERED: LORA2TAB PO (15:34)
[2019-05-02] MEDS ORDERED: METO50TA16 PO (15:34)
[2019-05-02] MEDS ORDERED: ATOR40TA PO (15:34)
[2019-05-02] MEDS ORDERED: ACET325T53 PO (15:34)
[2019-05-02] MEDS ORDERED: HYDR-4384 PO (15:34)
[2019-05-02] MEDS ORDERED: RISP1TAB7 PO (15:34)
[2019-05-02] MEDS ORDERED: DIGO250T PO (15:34)
--- NOTE | 2019-05-02 15:42 | NUR ---
BED: 851-7 TELE
[2019-05-02 15:49] LABS: D-DIMER 1.23 mg/L(FEU (0.17-0.50)
--- NOTE | 2019-05-02 16:28 | NUR ---
REPORT GIVEN TO LAURA OLIVA OF TELE UNIT
[2019-05-02] MEDS ORDERED: IV NS 0.9% 1,000 ML BAG IV ONE (17:00)
[2019-05-02] MEDS ORDERED: CT SWABBABLE VALVE TRANS SET 1 EA INFUS.SET MC ONE (17:03)
[2019-05-02] MEDS ORDERED: IV NS 0.9% 250 ML IV ONE (17:03)
[2019-05-02] MEDS ORDERED: IOHEXOL-350 100 ML VIAL IV ONE (17:03)
--- NOTE | 2019-05-02 17:23 | NUR ---
WHEELED OUT VIA GURNEY FOR CT PULMONARY ANGIOGRAM
--- NOTE | 2019-05-02 18:25 | NUR ---
ELLI FROM [facility] CALLED WITH TRANSFER INFO. PT IS GOING TO [facility], TO BED 205-B. NURSE IS SHAHRIAR [phone]
--- NOTE | 2019-05-02 18:29 | NUR ---
[facility] IS TRANSPORTING, ETA 45-60 MIN.
--- NOTE | 2019-05-02 19:17 | NUR ---
REPORT GIVEN TO LILO OLIVA OF [facility]
--- NOTE | 2019-05-02 19:41 | NUR ---
REPORT GIVEN TO [facility]
[2019-05-02 19:43] VITALS: BP 129/87
--- NOTE | 2019-05-02 20:06 | NUR ---
PT WAS TRANSFERRED TO [facility] UNDER ACLS PROTOCOL IN STABLE CONDITION
== END 2019-05-02 20:16 | disposition short-term general hospital (02) ==
LOC: ER 14:28
DX: R07.89 Other chest pain (principal); E86.0 Dehydration; E11.65 Type 2 diabetes mellitus with hyperglycemia; I10 Essential (primary) hypertension; I48.91 Unspecified atrial fibrillation; G89.29 Other chronic pain; F03.90 Unspecified dementia, unspecified severity, without behavioral disturbance, psychotic disturbance, mood disturbance, and anxiety; Z98.890 Other specified postprocedural states; Z86.19 Personal history of other infectious and parasitic diseases; Z79.899 Other long term (current) drug therapy
CPT/HCPCS: 36415; 71045; 71275; 80048; 80076; 83880; 84484; 85025; 85378; 85730; 87081; 93005 ×2; 96360; 99285; J7030; J7050; Q9967